=== PATIENT | male | born 1975 | race African-American/Black ===

== ENCOUNTER 2019-10-05 07:35 | Emergency (ER) | payer SELFPAY ==
[~2019-10-05] VITALS: Ht 188 cm; Wt 81.0 kg
[2019-10-05 07:38] VITALS: BP 142/85
[2019-10-05] MEDS ORDERED: cefTRIAXone IM 1 GM VIAL IM ONE (08:00)
[2019-10-05] MEDS ORDERED: KETOROLAC 60 MG/2 ML VIAL. IM ONE (08:00)
[2019-10-05] MEDS ORDERED: IBUP-1060 PO (08:11)
[2019-10-05] MEDS ORDERED: HYDR-3164 PO (08:11)
[2019-10-05] MEDS ORDERED: PENI500T PO (08:11)
--- NOTE | 2019-10-05 08:12 | PHYS DOC ---
Past Medical History Past Medical History: No Pertinent History Past Surgical History: No Surgical History Smoking: Cigarettes Alcohol Use: None Adult General Chief Complaint Chief Complaint: Toothache HPI HPI Patient is a 43 year old smoker male without history of medical problem who presents with complaint of tooth pain. Patient complaining of left lower jaw and tooth pain for the last 5 days as a constant pain that gradually getting worse with edema of his face. Patient rated his pain 7/10 and states she took Tylenol and ibuprofen without improvement of her pain. Patient denies fever and chills, dysphagia, nausea and vomiting. Patient states he had broken tooth for a while without problem previously. Review of Systems Review of Systems Constitutional: Denies fever or chills [] Eyes: Denies change in visual acuity, redness, or eye pain [] HENT: Denies nasal congestion or sore throat, reports dental pain Respiratory: Denies cough or shortness of breath [] Cardiovascular: No additional information not addressed in HPI [] GI: Denies abdominal pain, nausea, vomiting, bloody stools or diarrhea [] : Denies dysuria or hematuria [] Musculoskeletal: Denies back pain or joint pain [] Integument: Denies rash or skin lesions [] Neurologic: Denies headache, focal weakness or sensory changes [] Endocrine: Denies polyuria or polydipsia [] All other systems were reviewed and found to be within normal limits, except as documented in this note. Current Medications Current Medications Current Medications Medications (Trade) Dose Ordered Sig/Madison Start Time Stop Time Status Last Admin Dose Admin Ceftriaxone Sodium (Rocephin Im) 1 gm 1X ONCE 10/05/19 08:00 10/05/19 08:01 DC 10/05/19 08:22 1 GM Ketorolac Tromethamine (Toradol Im) 60 mg 1X ONCE 10/05/19 08:00 10/05/19 08:01 DC 10/05/19 08:22 60 MG Allergies Allergies Allergies Coded Allergies Type Severity Reaction Last Updated Verified No Known Drug Allergies 02/05/16 No Physical Exam Physical Exam Constitutional: Well developed, well nourished, mild distress, non-toxic appearance. [] HENT: Normocephalic, atraumatic, left facial moderate edema without erythema bilateral external ears normal, oropharynx moist, #15 with remaining root only and tenderness of gum with inflammation and erythema, no oral exudates, nose normal. [] Eyes: PERRLA, EOMI, conjunctiva normal, no discharge. [] Neck: Normal range of motion, no tenderness, supple, no stridor. [] Cardiovascular:Heart rate regular rhythm, no murmur [] Lungs & Thorax: Bilateral breath sounds clear to auscultation [] Skin: Warm, dry, no erythema, no rash. [] Back: No tenderness, no CVA tenderness. [] Extremities: No tenderness, no cyanosis, no clubbing, ROM intact, no edema. [] Neurologic: Alert and oriented X 3, normal motor function, normal sensory function, no focal deficits noted. [] Psychologic: Affect normal, judgement normal, mood normal. [] Current Patient Data Vital Signs Vital Signs Date Time Temp Pulse Resp B/P (MAP) Pulse Ox O2 Delivery O2 Flow Rate FiO2 10/05/19 07:38 98.7 83 14 142/85 (104) 97 Room Air 98.7 EKG EKG [] Radiology/Procedures Radiology/Procedures [] Course & Med Decision Making Course & Med Decision Making Evaluation of patient in ER showed 43-year-old male patient with abscess of tooth #15 with remaining root only and facial cellulitis of face without fever. Patient treated with IM Rocephin and Toradol and was advised to follow-up with a dentist and quit smoking. I've spoken with the patient and/or caregivers. I've explained the patient's condition, diagnosis and treatment plan based on information available to me at this time. I've answered the patient's and/or caregivers questions and addressed any concerns. The patient and/or caregivers have a good understanding the patient's diagnosis, condition and treatment plan as can be expected at this p oint. Vital signs have been stabilized. The patient's condition is stable for discharge from the emergency department. The patient will pursue further outpatient evaluation with her primary care provider or other designated consulting physician as outlined in the discharge instructions. Patient and/or caregivers are agreeable to this plan of care and follow-up instructions have been explained in detail. The patient and/or caregivers have received these instructions in written format and expressed understanding of these discharge instructions. The patient and her caregivers are aware that if any significant change in condition or worsening of symptoms should prompt him to immediately return to this of the closest emergency department. If an emergent department is not readily available I would encourage him to call 911. Yamile Disclaimer Yamile Disclaimer This electronic medical record was generated, in whole or in part, using a voice recognition dictation system. Departure Departure Impression: Primary Impression: Dental abscess Disposition: HOME, SELF-CARE (at 8:30) Condition: IMPROVED Referrals: NO PCP (PCP) Patient Instructions: Dental Abscess Additional Instructions: Drink plenty of liquids Follow-up with your dentist in 3-5 days Return to ER if not getting better Quit smoking Thank you for visiting [facility]. We appreciate you trusting us with your care. If any additional problems come up don't hesitate to return to visit us. Please follow up with your primary care provider so they can plan additional care if needed and know about the problem that you had. If symptoms worsen come back to the Emergency Department. Any concerning symptoms that start such as chest pain, shortness of air, weakness or numbness on one side of the body, running high fevers or any other concerning symptoms return to the ER. Scripts Penicillin V Potassium (PENICILLIN V POTASSIUM) 500 Mg Tablet 2 TAB PO Q12HR, #40 TAB Prov: FIDELIA ORTEGA MD 10/05/19 Hydrocodone/Apap 5-325 (NORCO 5-325 TABLET) 1 Each Tablet 1 TAB PO PRN Q6HRS PRN for PAIN, #10 TAB 0 Refills Prov: FIDELIA ORTEGA MD 10/05/19 Ibuprofen (IBUPROFEN) 800 Mg Tablet 800 MG PO PRN Q8HRS PRN for INFLAMMATION, #20 TAB Prov: FIDELIA ORTEGA MD 10/05/19 FIDELIA ORTEGA MD Oct 05, 2019 08:12
== END 2019-10-05 08:48 | disposition home or self-care (01) ==
LOC: ER 07:35
DX: K04.7 Periapical abscess without sinus (principal); R68.84 Jaw pain; R60.9 Edema, unspecified; F17.210 Nicotine dependence, cigarettes, uncomplicated
CPT/HCPCS: 96372; 99284; J0696; J1885

== ENCOUNTER 2021-02-07 15:40 | Emergency (ER) | payer SELFPAY ==
[~2021-02-07] VITALS: Ht 188 cm; Wt 80.9 kg
[~2021-02-07 15:40] MED LIST: HYDR-3164 PO; IBUP-1060 PO; PENI500T PO
[2021-02-07 16:07] VITALS: BP 153/88
[2021-02-07] MEDS ORDERED: ALBUTEROL SULFATE 2.5 MG/3 ML NEBU. NEB ONE (16:15)
[2021-02-07] MEDS ORDERED: methylPREDNISolone SOD SUCC PF 125 MG/2 ML VIAL. IV ONE (16:15)
[2021-02-07] MEDS ORDERED: ASPIRIN 325 MG TABLET PO ONE (16:15)
[2021-02-07 16:20] LABS: BASO # 0.1 x10^3/uL (0.0-0.2); BASO % 1 % (0-3); CALCIUM 8.5 mg/dL (8.5-10.1); CREATININE 0.9 mg/dL (0.7-1.3); EOS # 0.1 x10^3/uL (0.0-0.7); EOS % 1 % (0-3); GFR 110.9; HEMATOCRIT 41.8 % (39.0-53.0); HEMOGLOBIN 14.8 g/dL (13.0-17.5); LYMPH # 2.6 x10^3/uL (1.0-4.8); LYMPH % 25 % (24-48); MEAN CORPUSCULAR HEMOGLOBIN 35 pg (25-35); MEAN CORPUSCULAR HGB CONC 35 g/dL (31-37); MEAN CORPUSCULAR VOLUME 100 fL (79-100); MONO # 0.9 x10^3/uL (0.0-1.1); MONO % 9 % (0-9); NEUT # 6.7 x10^3/uL (1.8-7.7); NEUT % 64 % (31-73); PLATELET COUNT 240 x10^3/uL (140-400); POTASSIUM 4.3 mmol/L (3.5-5.1); RED CELL DISTRIBUTION WIDTH 14.3 % (11.5-14.5); WHITE BLOOD COUNT 10.4 x10^3/uL (4.0-11.0)
[2021-02-07 16:27] LABS: ALBUMIN 4.1 g/dL (3.4-5.0); ALBUMIN/GLOBULIN RATIO 1.2 (1.0-1.7); TOTAL BILIRUBIN 1.1 mg/dL (0.2-1.0); TOTAL PROTEIN 7.5 g/dL (6.4-8.2)
--- NOTE | 2021-02-07 16:59 | RAD ---
EXAM: Chest, single view. HISTORY: Chest pain. COMPARISON: None. FINDINGS: A frontal view of the chest obtained. There is no infiltrate, pleural effusion or pneumotho rax. The heart is normal in size. IMPRESSION: No acute pulmonary finding. Electronically signed by: Latoya Malik MD (02/07/2021 4:56 PM) [id number]
--- NOTE | 2021-02-07 17:09 | PHYS DOC ---
Past Medical History Past Medical History: No Pertinent History (LIZBETH PICKARD BISQUE KILN DRAWER) Past Surgical History: No Surgical History ([facility]) Smoking Status: Current Some Day Smoker Alcohol Use: Heavy (LIZBETH PICKARD APRN) General Adult EDM: Chief Complaint: CHEST WALL PAIN HPI: HPI: Patient is a 45 year old male who presents with 2 days of left chest tightness and pressure with left arm tingling. He states at times he gets a sharp shooting pain from his shoulder down to his back. His only history is a smoker. Rates his discomfort at a 6 out of 10. Denies shortness of pain, abdominal pain, nausea, vomiting, diarrhea, fever, nasal congestion, seasonal allergies, asthma, dizziness, headache, syncope. (LIZBETH PICKARD BISQUE KILN DRAWER) Review of Systems: Review of Systems: Constitutional: Denies fever or chills. [] Eyes: Denies change in visual acuity. [] HENT: Denies nasal congestion or sore throat. [] Respiratory: Denies cough or shortness of breath. [] Cardiovascular: + Left chest pain or denies edema. [] GI: Denies abdominal pain, nausea, vomiting, bloody stools or diarrhea. [] : Denies dysuria. [] Musculoskeletal: +Sharp shooting pain down the back. Denies or joint pain. [] Integument: Denies rash. [] Neurologic: Denies headache, focal weakness or sensory changes. + Left arm tingling [] Endocrine: Denies polyuria or polydipsia. [] Lymphatic: Denies swollen glands. [] Psychiatric: Denies depression or anxiety. [] (LIZBETH PICKARD BISQUE KILN DRAWER) Heart Score: C/O Chest Pain: Yes HEART Score for Chest Pain: HEART Score for Chest Pain Response (Comments) Value History Slighlty/Non-Suspicious 0 ECG Normal 0 Age < 45 0 Risk Factors 1 or 2 Risk Factors 1 Troponin < Normal Limit 0 Total 1 Risk Factors: Risk Factors: DM, Current or recent (<one month) smoker, HTN, HLP, family history of CAD, obesity. Risk Scores: Score 0 - 3: 2.5% MACE over next 6 weeks - Discharge Home Score 4 - 6: 20.3% MACE over next 6 weeks - Admit for Clinical Observation Score 7 - 10: 72.7% MACE over next 6 weeks - Early Invasive Strategies (LIZBETH PICKARD APRN) Current Medications: Current Medications Medications (Trade) Dose Ordered Sig/Madison Start Time Stop Time Status Last Admin Dose Admin Albuterol Sulfate (Ventolin Neb Soln) 2.5 mg 1X ONCE 02/07/21 16:15 02/07/21 16:16 DC 02/07/21 16:56 2.5 MG Aspirin (Donaldo Aspirin) 325 mg 1X ONCE 02/07/21 16:15 02/07/21 16:16 DC 02/07/21 16:32 325 MG Methylprednisolone Sodium Succinate (SOLU-Medrol 125MG VIAL) 100 mg 1X ONCE 02/07/21 16:15 02/07/21 16:16 DC 02/07/21 16:32 100 MG (LIZBETH PICKARD APRN) Allergies: Allergies: Allergies Coded Allergies Type Severity Reaction Last Updated Verified No Known Drug Allergies 02/05/16 No (LIZBETH PICKARD APRN) Physical Exam: PE: Constitutional: Well developed, well nourished, no acute distress, non-toxic appearance. [] HENT: Normocephalic, atraumatic, bilateral external ears normal, oropharynx moist, no oral exudates, nose normal. [] Eyes: PERRLA, EOMI, conjunctiva normal, no discharge. [] Neck: Normal range of motion, no tenderness, supple, no stridor. [] Cardiovascular:Heart rate regular rhythm, no murmur [] Lungs & Thorax: Bilateral breath sounds clear to auscultation [] Abdomen: Bowel sounds normal, soft, no tenderness, no masses, no pulsatile masses. [] Skin: Warm, dry, no erythema, no rash. [] Back: No tenderness, no CVA tenderness. [] Extremities: No tenderness, no cyanosis, no clubbing, ROM intact, no edema. [] Neurologic: Alert and oriented X 3, normal motor function, normal sensory function, no focal deficits noted. [] Psychologic: Affect normal, judgement normal, mood normal. Normal physical exam [] (LIZBETH PICKARD APRN) Current Patient Data: Labs: Laboratory Tests Test 02/07/21 16:00 White Blood Count 10.4 x10^3/uL (4.0-11.0) Red Blood Count 4.20 x10^6/uL (4.30-5.70) L Hemoglobin 14.8 g/dL (13.0-17.5) Hematocrit 41.8 % (39.0-53.0) Mean Corpuscular Volume 100 fL (79-100) Mean Corpuscular Hemoglobin 35 pg (25-35) Mean Corpuscular Hemoglobin Concent 35 g/dL (31-37) Red Cell Distribution Width 14.3 % (11.5-14.5) Platelet Count 240 x10^3/uL (140-400) Neutrophils (%) (Auto) 64 % (31-73) Lymphocytes (%) (Auto) 25 % (24-48) Monocytes (%) (Auto) 9 % (0-9) Eosinophils (%) (Auto) 1 % (0-3) Basophils (%) (Auto) 1 % (0-3) Neutrophils # (Auto) 6.7 x10^3/uL (1.8-7.7) Lymphocytes # (Auto) 2.6 x10^3/uL (1.0-4.8) Monocytes # (Auto) 0.9 x10^3/uL (0.0-1.1) Eosinophils # (Auto) 0.1 x10^3/uL (0.0-0.7) Basophils # (Auto) 0.1 x10^3/uL (0.0-0.2) Sodium Level 137 mmol/L (136-145) Potassium Level 4.3 mmol/L (3.5-5.1) Chloride Level 102 mmol/L (98-107) Carbon Dioxide Level 28 mmol/L (21-32) Anion Gap 7 (6-14) Blood Urea Nitrogen 9 mg/dL (8-26) Creatinine 0.9 mg/dL (0.7-1.3) Estimated GFR (Cockcroft-Gault) 110.9 BUN/Creatinine Ratio 10 (6-20) Glucose Level 100 mg/dL (70-99) H Calcium Level 8.5 mg/dL (8.5-10.1) Total Bilirubin 1.1 mg/dL (0.2-1.0) H Aspartate Amino Transferase (AST) 83 U/L (15-37) H Alanine Aminotransferase (ALT) 67 U/L (16-63) H Alkaline Phosphatase 119 U/L (46-116) H Troponin I Quantitative < 0.017 ng/mL (0.000-0.055) YU-Vrp-A-Type Natriuretic Peptide 16 pg/mL (0-124) Total Protein 7.5 g/dL (6.4-8.2) Albumin 4.1 g/dL (3.4-5.0) Albumin/Globulin Ratio 1.2 (1.0-1.7) Lipase 79 U/L (73-393) Laboratory Tests 02/07/21 16:00 Laboratory Tests 02/07/21 16:00 Vital Signs: Vital Signs Date Time Temp Pulse Resp B/P (MAP) Pulse Ox O2 Delivery O2 Flow Rate FiO2 02/07/21 16:56 97 Room Air 02/07/21 16:07 98.3 83 20 153/88 (109) 98.3 (LIZBETH PICKARD APRN) EKG: EK and read by Dr. Pedroza as sinus rhythm and no STEMI (LIZBETH PICKARD APRN) Radiology/Procedures: Radiology/Procedures: [] Impression: [facility] [address] [place] [address] IMAGING REPORT Signed PATIENT: JAMES MELO ACCOUNT: [id number] : 1975 LOCATION: ER AGE: 45 SEX: M EXAM STATUS: REG ER ORD. PHYSICIAN: LIZBETH PICKARD APRN REASON: chest pain PROCEDURE: PORTABLE CHEST 1V EXAM: Chest, single view. HISTORY: Chest pain. COMPARISON: None. FINDINGS: A frontal view of the chest obtained. There is no infiltrate, pleural effusion or pneumothorax. The heart is normal in size. IMPRESSION: No acute pulmonary finding. Electronically signed by: Latoya Albert MD (02/07/2021 4:56 PM) [id number] DICTATED and SIGNED BY: LATOYA ALBERT MD DATE: 02/07/21 [id number] 0 (LIZBETH PICKARD APRN) Course & Med Decision Making: Course & Med Decision Making Pertinent Labs and Imaging studies reviewed. (See chart for details) See HPI. Alert and oriented x4. Ambulatory with a steady gait. Speaks in full clear sentences. Lungs are clear to auscultation all lobes. No extremity swelling. Skin pink warm and dry. Vital signs within normal limits. EKG shows a sinus rhythm and no STEMI. No extremity edema. He states nothing makes it worse or better. He denies any kind of injury where he would have strained his chest muscles. He denies any injury to his arm. Radial pulses strong and present. Cap refill less than 2 seconds. Chest x-ray shows no acute findings. CT abdomen pelvis finds a incidental finding of diverticulitis. Patient has no symptoms of this at this time. He will be placed on ciprofloxacin and Flagyl. I will refer him to a GI doctor. Patient's heart score is only a 1. Patient is stable and in no distress. [] (LIZBETH PICKARD APRN) Dragon Disclaimer: Dragon Disclaimer: This electronic medical record was generated, in whole or in part, using a voice recognition dictation system. (LIZBETH PICKARD APRN) Departure Departure Impression: Primary Impression: Nonspecific chest pain Additional Impressions: Tingling of left upper extremity Diverticulitis Disposition: HOME / SELF CARE / HOMELESS Condition: STABLE Referrals: UNKNOWN PCP NAME (PCP) AISSATOU DENNEY MD Patient Instructions: Diverticulitis Additional Instructions: Follow-up with your GI doctor which I have referred you to in the next week or so. Drink plenty of fluids. Stay away from any kind of nuts or corn. Take antibiotics as prescribed and with food. Do not drink alcohol with these anti biotics as they will make you vomit. Scripts Ibuprofen (IBUPROFEN) 600 Mg Tablet 600 MG PO PRN Q6HRS PRN for INFLAMMATION, #20 TAB Prov: LIZBETH PICKARD APRN 02/07/21 Albuterol Sulfate (PROAIR HFA INHALER) 8.5 Gm Hfa.aer.ad 1 PUFF INH PRN Q6HRS PRN for SHORTNESS OF BREATH, #1 EACH 0 Refills Prov: LIZBETH PICKARD APRN 02/07/21 Ondansetron (ONDANSETRON ODT) 4 Mg Tab.rapdis 1 TAB PO PRN Q6-8HRS, #16 TAB Prov: LIZBETH PICKARD APRN 02/07/21 Metronidazole (METRONIDAZOLE) 500 Mg Tablet 1 TAB PO TID for 10 Days, #30 TAB 0 Refills Prov: LIZBETH PICKARD APRN 02/07/21 Ciprofloxacin Hcl (CIPROFLOXACIN HCL) 500 Mg Tablet 1 TAB PO BID, #14 TAB Prov: LIZBETH PICKARD APRN 02/07/21 Attending Signature I have participated in the care of this patient and I have reviewed and agree with all pertinent clinical information above including history, exam, and recommendations. (KAILYN PEDROZA DO) LIZBETH PICKARD APRN February 07, 2021 17:09 KAILYN PEDROZA DO February 07, 2021 18:05
--- NOTE | 2021-02-07 17:37 | RAD ---
CT ABDOMEN+PELVIS WO History: Reason: left chest pain with elevated liver enzymes and high bili / Spl. Instructions: / Hi story: Technique: Noncontrast examination of the abdomen and pelvis. Coronal and sagittal reconstructions we re performed. Exposure: One or more of the following individualized dose reduction techniques were utilized for thi s examination: 1. Automated exposure control 2. Adjustment of the mA and/or kV according to patient size 3. Use of iterative reconstruction technique. Comparison: None Findings: Lower chest: No consolidation or pleural effusion. Abdomen and pelvis: Focal fatty infiltration along the falciform ligament. The spleen, adrenal glands , pancreas and gallbladder are unremarkable. No biliary ductal dilatation. Nonobstructing left intrarenal calculus. No hydronephrosis. Decompressed urinary bladder. Inflamed the descending colonic diverticulum with mild adjacent edema and associated wall thickening. No perforation. No abscess. Normal appendix. No evidence of bowel obstruction. No pathologic lymphad enopathy. No ascites. Bones: No pathologic osseous lesions. Impression: 1. Acute descending clonic mild diverticulitis. No perforation or abscess. 2. Nonobstructing left intrarenal calculus. Electronically signed by: Ayaan Sheffield DO (02/07/2021 5:35 PM) [facility]
[2021-02-07] MEDS ORDERED: IBUP-1007 PO (18:00)
[2021-02-07] MEDS ORDERED: METR-34 PO (18:00)
[2021-02-07] MEDS ORDERED: ONDA4TAB12 PO (18:00)
[2021-02-07] MEDS ORDERED: CIPR500T2 PO (18:00)
[2021-02-07] MEDS ORDERED: ALBU2.5V8 INH (18:00)
--- NOTE | 2021-02-07 18:21 | EKG ---
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
--- NOTE | 2021-02-08 10:02 | EKG ---
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
== END 2021-02-07 18:24 | disposition home or self-care (01) ==
LOC: ER 15:40
DX: R07.89 Other chest pain (principal); R20.2 Paresthesia of skin; K57.92 Diverticulitis of intestine, part unspecified, without perforation or abscess without bleeding; F17.200 Nicotine dependence, unspecified, uncomplicated
CPT/HCPCS: 36415; 71045; 74176; 80053; 83690; 83880; 84484; 85025; 93005; 94640; 96374; 99285; J2930; J7613

== ENCOUNTER 2021-11-13 09:13 | Emergency (ER) | payer BC ==
[~2021-11-13] VITALS: Ht 188 cm; Wt 81.8 kg
[~2021-11-13 09:13] MED LIST changes: +ALBU2.5V8 INH; +CIPR500T2 PO; +IBUP-1007 PO; +METR-34 PO; +ONDA4TAB12 PO
[2021-11-13] MEDS ORDERED: IBUPROFEN 400 MG TABLET. PO ONE (09:45)
--- NOTE | 2021-11-13 10:11 | RAD ---
Right knee 3 views. HISTORY: Right knee pain 3 views were taken of the right knee. There is not evidence of an acute fracture or osseous abnormali ty. There is no joint effusion. IMPRESSION: 1. No acute osseous abnormality noted in the right knee. Electronically signed by: Corby Iverson MD (11/13/2021 10:08 AM) [facility]
[2021-11-13] MEDS ORDERED: IBUP-1060 PO (11:16)
--- NOTE | 2021-11-13 11:17 | PHYS DOC ---
Past Medical History Past Medical History: No Pertinent History Past Surgical History: No Surgical History Smoking Status: Current Some Day Smoker Alcohol Use: Heavy Adult General Chief Complaint Chief Complaint: KNEE INJURY HPI HPI Patient is a 45 year old with right knee pain. Pain is over the medial aspect of the right knee. No associated trauma, patient does not recall bending or twisting his knee in an awkward angle. No direct blow. He woke up this morning and simply had pain when trying to ambulate. Review of Systems Review of Systems Constitutional: Denies fever Eyes: Denies change in visual acuity or eye pain HENT: Denies sore throat Respiratory: Denies shortness of breath Cardiovascular: Denies chest pain GI: Denies abd pain : Denies dysuria Musculoskeletal: Denies back or extremity injury Integument: Denies rash or skin lesions Neurologic: Denies headache, focal weakness or sensory changes All other systems were reviewed and found to be within normal limits, except as documented in this note. Current Medications Current Medications Current Medications Medications (Trade) Dose Ordered Sig/Madison Start Time Stop Time Status Last Admin Dose Admin Ibuprofen (Motrin) 800 mg 1X ONCE 11/13/21 09:45 11/13/21 09:46 DC 11/13/21 10:04 800 MG Allergies Allergies Allergies Coded Allergies Type Severity Reaction Last Updated Verified No Known Drug Allergies 02/05/16 No Physical Exam Physical Exam Constitutional: Well developed, well nourished, no acute distress, non-toxic appearance. HENT: Normocephalic, atraumatic, bilateral external ears normal, mucosa moist, nose normal. Eyes: EOMI, conjunctiva normal, no discharge. Neck: Normal range of motion, supple, no stridor, no meningeal signs. Cardiovascular: Regular rate and rhythm Lungs & Thorax: Bilateral breath sounds clear to auscultation Abdomen: Soft, no tenderness or obvious masses Skin: Warm, dry, no erythema, no rash. Extremities: Tenderness on palpation of the medial aspect of the right knee over the medial collateral ligaments. No erythema, bruising or swelling. ROM intact, no edema. Neurologic: Alert and oriented, normal motor function, normal sensory function, no focal deficits noted. Psychologic: Affect normal, judgement normal, mood normal. Current Patient Data Vital Signs Vital Signs Date Time Temp Pulse Resp B/P (MAP) Pulse Ox O2 Delivery O2 Flow Rate FiO2 11/13/21 09:26 97.8 77 14 146/91 (109) 99 97.8 EKG EKG [] Radiology/Procedures Radiology/Procedures [] Impressions: PATIENT: JAMES KLEIN DACCOUNT: [id number]#: [id number] : 1975 LOCATION: ER AGE: 45 SEX: M EXAM STATUS: REG ER ORD. PHYSICIAN: SYLVIA SHEA MD REASON: RIGHT KNEE PAIN, NO KNOWN INJURY PROCEDURE: KNEE RIGHT 3V Right knee 3 views. HISTORY: Right knee pain 3 views were taken of the right knee. There is not evidence of an acute fracture or osseous abnormality. There is no joint effusion. IMPRESSION: 1. No acute osseous abnormality noted in the right knee. Electronically signed by: Corby Carbajal MD (11/13/2021 10:08 AM) [facility] DICTATED and SIGNED BY: CORBY CARBAJAL MD DATE: 11/13/21 [id number] 0 Course & Med Decision Making Course & Med Decision Making Pertinent Labs and Imaging studies reviewed. (See chart for details) [] This a 45-year-old male with knee pain. No trauma. X-rays are negative for evidence of fracture, subluxation or dislocation. Patient to be placed in a Jae wrap and be given crutches to use until he is able to ambulate pain-free. Given orthopedics follow-up as needed, prescription for Motrin, he is stable for discharge. Dragon Disclaimer Dragon Disclaimer This electronic medical record was generated, in whole or in part, using a voice recognition dictation system. Departure Departure Impression: Primary Impression: Knee pain Disposition: HOME / SELF CARE / HOMELESS Condition: STABLE Referrals: NO PCP (PCP) Patient Instructions: Knee Pain Scripts Ibuprofen (IBUPROFEN) 800 Mg Tablet 800 MG PO PRN TID PRN for PAIN, #20 TAB take with food or milk to avoid upsetting stomach Prov: SYLVIA SHEA MD 11/13/21 SYLVIA SHEA MD Nov 13, 2021 11:17
[2021-11-13 11:59] VITALS: BP 142/90
== END 2021-11-13 12:08 | disposition home or self-care (01) ==
LOC: ER 09:13
DX: M25.561 Pain in right knee (principal); F17.200 Nicotine dependence, unspecified, uncomplicated; F10.20 Alcohol dependence, uncomplicated; Y90.9 Presence of alcohol in blood, level not specified
CPT/HCPCS: 73562; 99283; A6450